=== PATIENT | female | born 1960 | race Caucasian/White ===

== ENCOUNTER → 2019-04-06 | Outpatient (CLI) | payer BC ==
--- NOTE | 2019-04-06 13:59 | Diagnostic Imaging Report ---
INDICATION: Chronic left foot pain. TIME OF EXAM: 1:56 p.m. FINDINGS: Three views of the left foot were obtained. There are significant degenerative changes at the first MTP joint, with sclerosis, joint space narrowing, and marginal osteophyte formation. Second through fifth MTP joints are intact. No fractures are identified. Midfoot and hindfoot are unremarkable. IMPRESSION: Significant first MTP joint degenerative changes. No other significant abnormality is detected. Dictated by: Dictated on workstation # [id number]
--- NOTE | 2019-04-06 14:14 | Diagnostic Imaging Report ---
INDICATION: Chronic left ankle pain. TIME OF EXAM: 1:55 p.m. FINDINGS: Three views of the left ankle were obtained. Alignment is normal. Ankle mortise is well maintained. Talar dome is smooth. No fracture or dislocation is seen. IMPRESSION: No acute bony abnormality is detected. Dictated by: Dictated on workstation # [id number]
== END ==
LOC: RAD 13:31
PROVIDERS: ATTEND Nurse Practitioner Family
DX: M19.072 Primary osteoarthritis, left ankle and foot (principal); M79.672 Pain in left foot; G89.29 Other chronic pain
CPT/HCPCS: 73610; 73630

== ENCOUNTER 2019-04-17 03:44 | Emergency (ER) | payer BC ==
[~2019-04-17] VITALS: Ht 167.4 cm; Wt 96.6 kg
--- NOTE | 2019-04-17 04:12 | ED EENT ---
History of Present Illness General Chief Complaint: Dental Problems/Pain Stated Complaint: DENTAL PAIN Source: patient Exam Limitations: no limitations History of Present Illness Date Seen by Provider: Apr 17, 2019 Time Seen by Provider: 04:04 Initial Comments Here with report of dental pain and swelling to the area of the left cheek that tonight. She called her dentist who recommended she come to the ER for antibiotics. He is going to see her at 9:30 this morning. She has been taking penicillin 500 mg every 4 hours and the swelling worsened. She does have poor dentition in the area of the left upper teeth and has multiple teeth missing. Denies breathing or swallowing problems. Timing/Duration: gradual Severity: moderate Location: facial, dental Prearrival Treatment: prescription meds Associated Symptoms: No drooling, No ear drainage; facial pain/swelling; No fever, No nasal congestion/drainage; tooth pain; No voice change Allergies and Home Medications Allergies Coded Allergies: Codeine (Verified Allergy, Unknown, 08/24/07) Patient Home Medication List Home Medication List Reviewed: Yes Review of Systems Review of Systems Constitutional: see HPI; No chills, No fever Ears: No Symptoms Reported Mouth: pain, swelling Throat: denies pain, denies swelling, denies neck stiffness, denies hoarse, denies aphonia, denies muffled, denies painful swallowing Respiratory: no symptoms reported Cardiovascular: no symptoms reported Skin: see HPI, change in color; No pruritus Neurological: No Symptoms Reported Past Rodrffw-Ihixzo-Cmuedl Hx Past Med/Social Hx: Reviewed Nursing Past Med/Soc Hx Patient Social History Alcohol Use: Denies Use Recreational Drug Use: No Smoking Status: Never a Smoker Recent Foreign Travel: No Contact w/Someone Who Travel: No Physical Abuse: No Sexual Abuse: No Past Medical History Surgeries: Yes Section Respiratory: No Cardiac: No Neurological: No Reproductive Disorders: No Genitourinary: No Gastrointestinal: No Musculoskeletal: No Endocrine: No Psychosocial: Yes ADD/ADHD, Depression Family Medical History Reviewed Nursing Family Hx Physical Exam Height, Weight, BMI Height: '" Weight: lbs. oz. kg; BMI Method: General Appearance: WD/WN, no apparent distress Nose: normal inspection; No active bleeding Mouth/Throat: pharynx normal, dental tenderness, maxillary swelling (left- sided); No pharynx swelling, No tongue swollen, No trismus, No uvula swelling, No voice changes Neck: full range of motion, supple Cardiovascular: regular rate, rhythm, no murmur Respiratory: lungs clear, normal breath sounds Neurologic/Psychiatric: alert, oriented x 3 Skin: normal color, warm/dry Progress/Results/Core Measures Results/Orders My Orders Orders - JESSICA BELL MD Ceftriaxone For Im Use (Rocephin For Im (04/17/19 04:15) Lidocaine 1% Inj 20 Ml (Xylocaine 1% Inj (04/17/19 04:15) Progress Progress Note : Progress Note Seen and evaluated. She does have incomplete control with the penicillin. We will give Rocephin 1 g IM and have her follow up with her dentist at 9:30. If She is not getting improvement or if there is worsening, she has been instructed to return here for further evaluation and possible IV antibiotics if indicated. Discharged home with return precautions. Patient verbalize understanding instructions and agreement with plan. Departure Impression Primary Impression: Dental caries Additional Impression: Dental infection Disposition: HOME, SELF-CARE Condition: Stable Departure-Patient Inst. Decision time for Depature: 04:19 Referrals: NO,LOCAL PHYSICIAN (PCP/Family) Primary Care Physician Patient Instructions: Tooth Abscess (DC) Add. Discharge Instructions: All discharge instructions reviewed with patient and/or family. Voiced understanding. Keep appointment with your dentist at 9:30 this morning as scheduled. You should start to see improvement after the antibiotic dosing. Return for increasing swelling, redness, fever, difficulty with swallowing, breathing problems or other concerns as needed. Start new antibiotic as prescribed. You may stop the penicillin. You May take ibuprofen 600 mg every 8 hours as needed for pain. You may take Tylenol/acetaminophen 1000 mg every 8 hours as needed for pain. Drink plenty of fluids. Scripts Clindamycin HCl (Cleocin HCl) 300 Mg Capsule 300 MG PO Q6H, #28 CAP 0 Refills Prov: JESSICA BELL MD 04/17/19 JESSICA BELL MD Apr 17, 2019 04:12
[2019-04-17] MEDS ORDERED: LIDOCAINE 1% INJ 20 ML 20 ML VIAL INJ ONE (04:15)
[2019-04-17] MEDS ORDERED: cefTRIAXone 1,000 MG/2.86 ml vial (IM ONLY) IM ONE (04:15)
[2019-04-17] MEDS ORDERED: CLIN300C3 PO (04:23)
[2019-04-17] MEDS ORDERED: CLINDAMYCIN 150 MG (CLEOCIN) CAP PO STA (04:23)
[2019-04-17 04:45] VITALS: BP 151/85
== END 2019-04-17 04:46 | disposition home or self-care (01) ==
LOC: EDUNIT# 03:44 → ER 03:47
DX: K02.9 Dental caries, unspecified (principal); K04.7 Periapical abscess without sinus; F90.9 Attention-deficit hyperactivity disorder, unspecified type; F32.9 Major depressive disorder, single episode, unspecified; Z88.5 Allergy status to narcotic agent
CPT/HCPCS: 99283

== ENCOUNTER 2021-02-07 05:36 | Outpatient (CLI) | payer BC ==
[~2021-02-07] VITALS: Ht 165.1 cm; Wt 93.4 kg
[~2021-02-07 05:36] MED LIST: CLIN300C3 PO
[2021-02-09] MEDS ORDERED: BUSP10TA95 PO (13:43)
[2021-02-09] MEDS ORDERED: DEXT10TA9 PO (13:46)
[2021-02-09] MEDS ORDERED: ESCI-2 PO (13:46)
== END 2021-02-12 08:31 | disposition home or self-care (01) ==
LOC: PREOP 05:36
PROVIDERS: ATTEND Surgery
DX: Z01.818 Encounter for other preprocedural examination (principal)

== ENCOUNTER 2021-02-14 09:29 | Day surgery (SDC) | payer BC ==
[~2021-02-14] VITALS: Ht 165.1 cm; Wt 93.4 kg
[~2021-02-14 09:29] MED LIST changes: +BUSP10TA95 PO; +DEXT10TA9 PO; +ESCI-2 PO
[2021-02-14] MEDS ORDERED: LACTATED RINGERS 1,000 ML IV STA (09:31)
[2021-02-14] MEDS ORDERED: LACTATED RINGERS 1,000 ML IV ONE (09:34)
[2021-02-14 09:45] VITALS: BP 132/94
[2021-02-14] MEDS ORDERED: LIDOCAINE JELLY 2% 6 ML SYRINGE MM PRN (09:45)
[2021-02-14] MEDS ORDERED: MIDAZOLAM 2 MG/2 ML (VERSED) VIAL ONE (10:30)
[2021-02-14] MEDS ORDERED: PROPOFOL INJECTION 50 ML IV ONE (10:30)
--- NOTE | 2021-02-14 10:38 | Progress Note-Pre Operative ---
Pre-Operative Progress Note H&P Reviewed The H&P was reviewed, patient examined and no changes noted. Date Seen by Provider: Feb 14, 2021 Time Seen by Provider: 10:00 Date H&P Reviewed: Feb 14, 2021 Time H&P Reviewed: 10:00 Pre-Operative Diagnosis: change bowel habits JAK NGO MD Feb 14, 2021 10:38
--- NOTE | 2021-02-14 10:39 | Discharge Inst-Surgical ---
D/C Lap Instructions-HUBER Follow Up Activity as tolerated High Fiber Diet 25g or more per day Avoid Alcohol, Caffeine, Spicy [place] and Acid foods. Drink 64 fluid oz or more of fluids per day. Symptoms to Report: Fever over 101 degree F, Nausea/Vomiting If any problems/questions: Contact your physician or go to Emergency Room JAK NGO MD Feb 14, 2021 10:39
[2021-02-14] MEDS ORDERED: ONDANSETRON 4 MG/2 ML (SDV) Z0FRAN IVP PRN (10:45)
[2021-02-14] MEDS ORDERED: ONDANSETRON 4 MG (ZOFRAN) ORAL DISSOLVE TAB PO PRN (10:45)
[2021-02-14 11:25] VITALS: BP 129/62
[2021-02-14 11:30] VITALS: BP 122/59
[2021-02-14 11:35] VITALS: BP 122/59
--- NOTE | 2021-02-14 11:44 | Progress Note-Post Operative ---
Post-Operative Progess Note Surgeon (s)/Back Tender Insulation Board (s) Surgeon JAK NGO MD Back Tender Insulation Board: none Pre-Operative Diagnosis change bowel habits Post-Operative Diagnosis mild chronic stage 2 ext and int hemorrhoids, mild proctitis, mild sigmoid diverticulosis. Procedure & Operative Findings Date of Procedure 02/14/21 Procedure Performed/Findings colonoscopy with bx. Anesthesia Type mac Estimated Blood Loss Estimated blood loss (mL): minimal Specimens/Packing Specimens Removed rectum JAK NGO MD Feb 14, 2021 11:44
[2021-02-14 11:57] VITALS: BP 122/59
--- NOTE | 2021-02-14 13:48 | Anesthesia-General Post-Op ---
MAC Patient Condition Mental Status/LOC: Same as Preop Cardiovascular: Satisfactory Nausea/Vomiting: Absent Respiratory: Satisfactory Pain: Controlled Complications: Absent Post Op Complications Complications None Follow Up Care/Instructions Patient Instructions None needed. Anesthesiology Discharge Order Discharge Order Patient was doing well after the procedure, no complaints, stable vital signs, no apparent adverse anesthesia problems. ANDRADE BYRNE DO Feb 14, 2021 13:48
--- NOTE | 2021-02-14 17:04 | OPERATIVE REPORT ---
DATE OF SERVICE: 02/14/2021 ATTENDING PRIMARY CARE PHYSICIAN: Mikala Marcelo MD. PREOPERATIVE DIAGNOSES: Change in bowel habits encompassing diarrhea and stool incontinence on an intermittent basis. POSTOPERATIVE DIAGNOSES: Mild chronic stage II external and internal hemorrhoids, mild proctitis, and mild sigmoid diverticulosis. PROCEDURES PERFORMED: Colonoscopy with biopsy. SURGEON: Jak Ngo MD. ANESTHESIA: Monitored anesthesia care. ESTIMATED BLOOD LOSS: Minimal. FINDINGS: Mild chronic stage II external and internal hemorrhoids, mild proctitis, and mild sigmoid diverticulosis. DISPOSITION: The patient tolerated the procedure well. INDICATIONS FOR PROCEDURE: The patient is a 60-year-old female, who has had a change in bowel habits in the past year and she reports diarrhea as well as stool incontinence on an intermittent basis. She also does have some crampy abdominal pain as well. She does not report any red blood per rectum nor any dark tarry stools. Her last colonoscopy was greater than 10 years ago. She does not report any family history of colon cancer. DESCRIPTION OF PROCEDURE: The patient was brought to the endoscopy suite and laid in the left lateral decubitus position. After adequate IV pain and sedative medications and monitored anesthesia care, a digital rectal examination was performed. Mild chronic stage II external and internal hemorrhoids were identified, which were not actively edematous nor inflamed and no bleeding. Normal sphincter tone was felt and there were no palpable masses. The endoscope was then intubated and anus and rectum gently insufflated. The endoscope was then advanced through the valves of [place] of the rectum, where there were some mild patchy mucosal inflammatory spots, which may indicate some level of proctitis. Biopsies were taken with forceps with visualization of good hemostasis. The endoscope was then advanced through the sigmoid colon, where a mild sigmoid diverticulosis was identified. The endoscope was then advanced through the remainder of the descending, transverse, and ascending colon to the cecum. These segments were normal. There were no other mucosal inflammatory spots as well as no polyps or any neoplasms. The endoscope was then slowly withdrawn while taking a second look and suctioning of residual air with no additional findings. The patient tolerated the procedure well. We will recommend a high-fiber diet with at least 25 grams of fiber daily as well as significant amounts of water to promote soft stools on a daily basis. We will await the biopsy results and if she continues to have symptoms of loose stools as well as crampy abdominal pain, we will start the first line therapy for inflammatory bowel disease, which would likely encompass 5 amino salicylic acid on a t.i.d. basis for six weeks. However, if she continues to have worsening symptoms, we will refer her to gastroenterology. Job ID: [id number] DocumentID: [id number] Dictated Date: 02/14/2021 11:31:35 Debarker Operator Date: 02/14/2021 17:02:27 Dictated By: JAK NGO MD
== END 2021-02-14 12:03 | disposition home or self-care (01) ==
LOC: ENDO 09:29
PROVIDERS: ATTEND Surgery
DX: K57.30 Diverticulosis of large intestine without perforation or abscess without bleeding (principal); K64.1 Second degree hemorrhoids; F32.A Depression, unspecified; J45.909 Unspecified asthma, uncomplicated; K62.89 Other specified diseases of anus and rectum; Z79.899 Other long term (current) drug therapy
CPT/HCPCS: 88305

== ENCOUNTER 2022-03-28 05:48 | Outpatient (CLI) | payer BC ==
[~2022-03-28] VITALS: Ht 165.1 cm; Wt 93.0 kg
== END 2022-03-28 10:06 | disposition home or self-care (01) ==
LOC: PREOP 05:48
PROVIDERS: ATTEND Surgery
DX: Z01.818 Encounter for other preprocedural examination (principal)

== ENCOUNTER 2022-04-04 10:05 | Day surgery (SDC) | payer BC ==
[~2022-04-04] VITALS: Ht 165.1 cm; Wt 93.0 kg
[2022-04-04] VITALS (12 sets, daily range): BP systolic 104–127; BP diastolic 66–82
[2022-04-04] MEDS ORDERED: BUP/EPI 0.25% 1:200,000 (MARCAINE) 30 ML VIAL ONE (10:29)
[2022-04-04] MEDS ORDERED: LACTATED RINGERS 1,000 ML IV PRN (10:30)
[2022-04-04] MEDS ORDERED: ceFAZolin INJECTION 2,000 MG in NS (IVPB) 50 ML IV ONE (10:30)
[2022-04-04] MEDS ORDERED: MIDAZOLAM 2 MG/2 ML (VERSED) VIAL ONE (10:31)
[2022-04-04] MEDS ORDERED: fentaNYL INJ 100 MCG/2 ML AMP ONE (10:31)
[2022-04-04] MEDS ORDERED: proPOfol 200 MG/20 ML (DIPRIVAN) VIAL IV ONE (10:31)
[2022-04-04] MEDS ORDERED: SEVOFLURANE (ULTANE) 15 ML INHAL SOLN ONE ×2 (10:31→11:59)
[2022-04-04] MEDS ORDERED: LIDOCAINE PF 2% 5 ML (XYLOCAINE) VIAL ONE (10:31)
[2022-04-04] MEDS ORDERED: ONDANSETRON 4 MG/2 ML (SDV) Z0FRAN ONE (10:31)
--- NOTE | 2022-04-04 10:35 | Progress Note-Pre Operative ---
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
[2022-04-04] MEDS ORDERED: HYDR-3817 PO (10:38)
--- NOTE | 2022-04-04 10:39 | Discharge Inst-Surgical ---
D/C Lap Instructions-KIDO Reconcile Patient Problems Problems Reviewed?: Yes New, Converted, or Re-Newed RX: RX on Chart Follow Up Appt in 2 weeks Activity as tolerated No driving for 24 hours No driving while on pain medications Incentive Spirometry use every 2 hours while awake Regular Diet Symptoms to Report: Fever over 101 degree F, Nausea/Vomiting Infection Signs and Symptoms to report: Increased redness, Foul odor of wound, Increased drainage Bathing instructions: May shower Operative Area Clean/Dry; Keep incision clean/dry If any problems/questions: Contact your physician or go to Emergency Room DELL LUNDY APRN Apr 04, 2022 10:39
[2022-04-04] MEDS ORDERED: ceFAZolin INJECTION 2,000 MG ONE (10:40)
[2022-04-04] MEDS ORDERED: NS (IVPB) 50 ML ONE (10:40)
[2022-04-04] MEDS ORDERED: fentaNYL INJ 100 MCG/2 ML AMP IVP PRN (10:45)
[2022-04-04] MEDS ORDERED: HYDROcodone/APAP 5 MG/325 MG (LORTAB) TAB PO NR (10:45)
[2022-04-04] MEDS ORDERED: ACETAMINOPHEN 325 MG TABLET PO PRN (10:45)
[2022-04-04] MEDS ORDERED: ONDANSETRON 4 MG/2 ML (SDV) Z0FRAN IVP PRN ×2 (10:45→12:15)
[2022-04-04] MEDS ORDERED: BUP/EPI 0.25% 1:200,000 (MARCAINE) 30 ML VIAL INJ ONE (11:35)
[2022-04-04] MEDS ORDERED: KETOROLAC 30 MG/ML VIAL ONE (11:51)
--- NOTE | 2022-04-04 11:56 | Progress Note-Post Operative ---
Post-Operative Progess Note Surgeon (s)/Photoflash Powder Mixer (s) Surgeon JAK NGO MD Photoflash Powder Mixer: supa young FEATHER CUTTING MACHINE FEEDER Pre-Operative Diagnosis Umbilical hernia Post-Operative Diagnosis same Procedure & Operative Findings Date of Procedure 04/04/22 Procedure Performed/Findings open umbilical hernia repair with mesh. Anesthesia Type get Estimated Blood Loss Estimated blood loss (mL): minimal Specimens/Packing Specimens Removed hernia sac JAK NGO MD Apr 04, 2022 11:56
[2022-04-04] MEDS ORDERED: HYDROmorphone 2 MG/ML VIAL (DILAUDID) IV ONE (12:15)
[2022-04-04] MEDS ORDERED: HYDROmorphone 2 MG/ML VIAL (DILAUDID) ONE (12:30)
--- NOTE | 2022-04-04 14:09 | Anesthesia-General Post-Op ---
General Patient Condition Mental Status/LOC: Same as Preop Cardiovascular: Satisfactory Nausea/Vomiting: Absent Respiratory: Satisfactory Pain: Controlled Complications: Absent Post Op Complications Complications None Follow Up Care/Instructions Patient Instructions None needed. Anesthesia/Patient Condition Patient Condition Patient is doing well, no complaints, stable vital signs, no apparent adverse anesthesia problems. No complications reported per nursing. D/C home per [facility] [place]: Yes SOPHIE ZIMMERMAN CRNA Apr 04, 2022 14:09
--- NOTE | 2022-04-04 18:14 | OPERATIVE REPORT ---
DATE OF SERVICE: 04/04/2022 ATTENDING PRIMARY CARE PHYSICIAN: Dr. Mikala Marcelo. PREOPERATIVE DIAGNOSIS: Reducible symptomatic umbilical hernia. POSTOPERATIVE DIAGNOSIS: Reducible symptomatic umbilical hernia with a defect approximately 1.5 cm in size. PROCEDURE: Open umbilical hernia repair with mesh. SURGEON: Dr. Ngo. PRINT MANAGER: Marcello Vera APRN ANESTHESIA: General endotracheal. ESTIMATED BLOOD LOSS: Minimal. FINDINGS: Reducible umbilical hernia with omentum within the hernia sac. DISPOSITION: The patient tolerated the procedure well. INDICATIONS: The patient is a 61-year-old female known to us. We had seen her before for change in bowel habits and underwent a colonoscopy in 01/2021, was found to have mild external, internal hemorrhoids as well as a mild sigmoid diverticulosis. She was referred over to us for an outpouching and pain in the umbilical region and was seen by her primary care physician, found to have a hernia. She had reported that she has had this for a few years and it has increased in size and become more painful. Upon examination in the office, she was found to have an reducible umbilical hernia; however, tender to palpation. DESCRIPTION OF PROCEDURE: The patient was brought to the operating room, laid supine on the table. After adequate IV pain and sedative medications and general endotracheal intubation, the abdomen was prepped and draped in standard surgical fashion. A 0.5% Marcaine with epinephrine was then used to anesthetize the overlying skin in the supraumbilical rim and a crescent-shaped skin incision made using a #15 blade. The subcutaneous tissue was then dissected out using electrocautery. The hernia sac was identified and completely dissected using blunt dissection as well as electrocautery. The entire hernia sac was dissected out until the fascial base identified and an area cleared around the fascial base. The hernia sac was then opened with Metzenbaum scissors with only omentum within the hernia sac. The remainder of the hernia sac was then excised under direct visualization using electrocautery. The fascial defect was approximately 1.5 cm in size. A 6.4 coated polypropylene mesh was then placed into the defect and sutured transfascially in a concentric manner to the mesh using interrupted 0 Prolene sutures. Good hemostasis was observed. The base of the umbilicus was then imbricated to the mesh using 3-0 Vicryl interrupted suture. The subcutaneous tissue was then reapproximated using the same suture in interrupted manner. The skin was closed using 4-0 Monocryl running subcuticular suture. Wound was then cleaned and covered with Dermabond. The umbilicus was then filled with tonsil sponges followed by 4 x 4 gauze followed by a large Op-Site followed by an abdominal binder. The patient tolerated the procedure well. POSTOPERATIVE PLAN: We will start IV and oral pain medication as well as a clear liquid diet. Once she is tolerating clears with good pain control with oral pain medications and ambulating well, we will discharge her home where she will be instructed to do no heavy lifting or exertion for the next two weeks as well as to continue to wear the abdominal binder, both day and night for the next two weeks, only take off to shower. The pressure dressing applied. She may remove in approximately five days. Job ID: [id number] DocumentID: [id number] Dictated Date: 04/04/2022 12:09:17 News Clerk Date: 04/04/2022 18:12:00 Dictated By: JAK NGO MD MTDAlexis
== END 2022-04-04 14:15 | disposition home or self-care (01) ==
LOC: SDC 10:05
PROVIDERS: ATTEND Surgery
DX: K42.9 Umbilical hernia without obstruction or gangrene (principal)
CPT/HCPCS: 49591; 87081; C1781